=== PATIENT | female | born 1990 | race Caucasian/White ===

== ENCOUNTER 2020-07-27 18:18 | Emergency (ER) | payer OTHER ==
[2020-07-27 18:22] VITALS: BP 132/81; PULSE 95; TEMP 98; BMI 21.6
[2020-07-27] MEDS ORDERED: SODIUM CHLORIDE 0.9% 1000 ML INFUS.BAG IV ONE (19:58)
[2020-07-27 20:33] LABS: BASO % 0.2 % (0-2.0); EOS % 0.2 % (0-4.5); HEMATOCRIT 33.4 % (32.4-45.2); HEMOGLOBIN 11.7 GM/dL (10.7-15.3); MCH 31.4 pg (25.7-33.7); MCHC 35.1 g/dl (32.0-36.0); MEAN CELL VOLUME 89.4 fl (80-96); MEAN PLT VOLUME 8.7 fl (7.5-11.1); MONO % 13.9 % (3.8-10.2); NEUT % 71.7 % (42.8-82.8); PLATELET COUNT 186 K/MM3 (134-434); RBC 3.73 M/mm3 (3.60-5.2); RDW 12.1 % (11.6-15.6); WHITE BLOOD COUNT 8.2 K/mm3 (4.0-10.0)
[2020-07-27 20:52] LABS: CHLORIDE 105 mmol/L (98-107); POTASSIUM 3.8 mmol/L (3.5-5.1); SODIUM 138 mmol/L (136-145)
[2020-07-27 20:54] LABS: ANION GAP 8 MMOL/L (8-16); BLOOD UREA NITROGEN 9.9 mg/dL (7-18); CALCIUM 8.9 mg/dL (8.5-10.1); CO2 26 mmol/L (21-32); GLUCOSE,RANDOM 90 mg/dL (74-106)
[2020-07-27 20:57] LABS: CREATININE 0.5 mg/dL (0.55-1.3); SGOT/AST 87 U/L (15-37); SGPT/ALT 157 U/L (13-61)
[2020-07-27 20:59] LABS: BILIRUBIN,TOTAL 0.5 mg/dL (0.2-1); TOT PROT 7.7 g/dl (6.4-8.2)
[2020-07-27 21:00] LABS: ALK PHOS 178 U/L (45-117)
== END 2020-07-27 21:27 | disposition home or self-care (01) ==
LOC: JER 18:18
DX: R00.2 Palpitations (principal); R94.5 Abnormal results of liver function studies
CPT/HCPCS: 36415; 80053; 84443; 84484; 85025; 93005; 93010; 99284-25